=== PATIENT | male | born 1980 | race Caucasian/White ===

== ENCOUNTER 2021-02-04 09:24 | Emergency (ER) | payer BC ==
[~2021-02-04] VITALS: Ht 190.5 cm; Wt 103.7 kg
[2021-02-04 09:25] VITALS: BP 146/98
[2021-02-04] MEDS ORDERED: NS 1,000 ML IV ONE (12:05)
[2021-02-04 12:38] LABS: BASO # 0.1 10^3/uL (0.0-0.2); BASO % 0.7 % (0.0-1.0); EOS # 0.1 10^3/uL (0.0-0.5); EOS % 1.4 % (0.0-3.0); HEMATOCRIT 49.3 % (42.0-52.0); HEMOGLOBIN 16.4 g/dl (13.5-17.5); LYMPH % 30.2 % (24.0-44.0); MEAN CORPUSCULAR HEMOGLOBIN 28.3 pg (27.0-33.0); MEAN CORPUSCULAR HGB CONC 33.3 g/dl (32.0-36.5); MONO # 0.7 10^3/uL (0.0-0.8); MONO % 6.7 % (2.0-8.0); NEUTROPHILS # 6.1 10^3/uL (1.5-8.5); NEUTROPHILS % 60.7 % (36.0-66.0); PLATELET COUNT, AUTOMATED 317 10^3/uL (150-450)
[2021-02-04 13:03] LABS: ALBUMIN 4.2 GM/DL (3.2-5.2); ALT/SGPT 38 U/L (12-78); BILIRUBIN,DIRECT 0.2 MG/DL (0.0-0.2); BILIRUBIN,TOTAL 0.5 MG/DL (0.2-1.0); BLOOD UREA NITROGEN 13 MG/DL (7-18); CALCIUM LEVEL 9.6 MG/DL (8.5-10.1); CARBON DIOXIDE LEVEL 30 MEQ/L (21-32); CHLORIDE LEVEL 105 MEQ/L (98-107); CREATININE FOR GFR 0.75 MG/DL (0.70-1.30); GLOMERULAR FILTRATION RATE > 60.0 (>60); GLUCOSE, FASTING 90 MG/DL (70-100); LIPASE 110 U/L (73-393); POTASSIUM SERUM 4.1 MEQ/L (3.5-5.1); SODIUM LEVEL 139 MEQ/L (136-145); TOTAL PROTEIN 7.6 GM/DL (6.4-8.2)
[2021-02-04] MEDS ORDERED: ISOVUE-370 76% 100ML VIAL As Ordered ONE (13:20)
--- NOTE | 2021-02-04 13:45 | REP ---
INDICATION: LUQ abd pain. COMPARISON: None. TECHNIQUE: Standard helical technique after the intravenous administration of 100 cc Isovue 370 FINDINGS: The lung bases are clear. The liver, gallbladder, spleen, pancreas, adrenal glands are within normal limits. There is a tiny mm sized calcific appearing density in the inferior pole of the left kidney an although there are no pre contrast images to review this appears to be a tiny nonobstructing nephrolith. There are 2 round low-density structures in the right kidney 1 is in the interpolar region which measures 2.8 cm and the other is in the inferior pole and measures 1.7 cm. Neither of these have perceivable contrast-enhancement. The abdominal aorta and para-aortic regions are within normal limits. There are a few scattered descending colon and sigmoid colon diverticula. The bowel loops and the mesenteries are otherwise unremarkable. There is no mass or adenopathy. There is no free fluid or free air. Bone window technique throughout the exam shows the osseous structures to be within normal limits. IMPRESSION: 1. Possible tiny nonobstructing left nephrolith as described above. 2. Simple right renal cysts. 3. Scattered descending colon and sigmoid colon diverticulosis. <Electronically signed by Santiago Shaffer > 02/04/21 [id number]
== END 2021-02-04 15:26 | disposition home or self-care (01) ==
LOC: M ED 09:24
DX: R14.0 Abdominal distension (gaseous) (principal); R19.7 Diarrhea, unspecified
CPT/HCPCS: 74177; 80048; 80076; 83690; 85025; 87505; 99283; Q9967

== ENCOUNTER → 2021-05-12 | Outpatient (CLI) | payer BC ==
[~2021-05-12] MED LIST: E-Z-GAS II EFFERVESCENT PACKET (SODIUM BICARB./CITRIC ACID/SIMETHICONE) As Ordered ONE; E-Z-HD 98% w/w 340GM SUSP BTL As Ordered ONE; E-Z-PAQUE 96% w/w SUSP 176GM BTL As Ordered ONE
== END ==
LOC: M RAD 08:12
PROVIDERS: ATTEND Student in an Organized Health Care Education/Training Program
DX: R14.1 Gas pain (principal)

== ENCOUNTER → 2021-05-20 | Outpatient (REF) | payer BC | LOC: M LABDRAWC 15:39 | PROVIDERS: ATTEND Student in an Organized Health Care Education/Training Program | DX: K29.80 Duodenitis without bleeding (principal); K57.30 Diverticulosis of large intestine without perforation or abscess without bleeding; R19.5 Other fecal abnormalities; K64.1 Second degree hemorrhoids; R14.1 Gas pain ==

== ENCOUNTER → 2021-07-28 | Outpatient (REF) | payer BC ==
[2021-07-28 16:00] LABS: HEMOGLOBIN 15.7 g/dl (13.5-17.5); MEAN CORPUSCULAR HEMOGLOBIN 28.5 pg (27.0-33.0); MEAN CORPUSCULAR HGB CONC 33.4 g/dl (32.0-36.5); MEAN CORPUSCULAR VOLUME 85.3 fl (80.0-96.0); PLATELET COUNT, AUTOMATED 317 10^3/uL (150-450); RED BLOOD COUNT 5.51 10^6/uL (4.30-6.10); WHITE BLOOD COUNT 8.5 10^3/uL (4.0-10.0)
[2021-07-28 16:25] LABS: BLOOD UREA NITROGEN 10 MG/DL (7-18); CALCIUM LEVEL 9.6 MG/DL (8.5-10.1); CARBON DIOXIDE LEVEL 29 MEQ/L (21-32); CHLORIDE LEVEL 101 MEQ/L (98-107); CREATININE FOR GFR 0.76 MG/DL (0.70-1.30); GLOMERULAR FILTRATION RATE > 60.0 (>60); GLUCOSE, FASTING 88 MG/DL (70-100); POTASSIUM SERUM 4.5 MEQ/L (3.5-5.1); SODIUM LEVEL 138 MEQ/L (136-145)
== END ==
LOC: M SFHCCLAY 11:58
PROVIDERS: ATTEND Physician Assistant
DX: R10.2 Pelvic and perineal pain (principal)